=== PATIENT | male | born 1965 | race African-American/Black ===

== ENCOUNTER → 2019-04-09 | Outpatient (CLI) | payer OTHER ==
--- NOTE | 2019-04-09 09:29 | REP ---
Clinical: Trauma/injury with pain. Technique: AP, lateral, bilateral oblique views. Findings: No acute fracture or dislocation. Skeletal structures and joint spaces are intact and normal. Surrounding soft tissues including posterior soft tissues on lateral radiograph appear normal. Ankle mortise appears stable. No subcutaneous emphysema or radiodense foreign body. Incidental small calcaneal heal spur noted. Impression: Essentially normal left ankle radiograph series. Electronically Signed by Romeo Rust MD 04/09/2019 09:20 A
--- NOTE | 2019-04-09 09:30 | REP ---
Clinical: Pain. Prior injury. Technique: AP, lateral, bilateral oblique views of the left foot. Findings: No acute or healed fracture/injury is appreciated. Osseous structures, joint spaces, and surrounding soft tissues appear relatively normal. Incidental small calcaneal heal spur identified. Surrounding soft tissues are unremarkable. Impression: Essentially normal left foot radiographs. Electronically Signed by Romeo Rust MD 04/09/2019 09:21 A
== END ==
LOC: M RAD 08:37
PROVIDERS: ATTEND Surgery
DX: S99.912A Unspecified injury of left ankle, initial encounter (principal); X58.XXXA Exposure to other specified factors, initial encounter; Y92.9 Unspecified place or not applicable

== ENCOUNTER → 2019-10-30 | Outpatient (CLI) | payer OTHER ==
--- NOTE | 2019-10-31 01:21 | REP ---
Clinical: Left shoulder pain. Technique: Internal rotation, external rotation, and Y view of the left shoulder. Findings: Mild cortical irregularity and subtle spurring at the acromioclavicular joint. Subacromial space is within normal limits. The glenohumeral joint is intact and normal. There is no evidence for acute fracture dislocation. No periarticular calcifications or loose bodies. Impression: Mild degenerative changes at the acromioclavicular joint. Electronically Signed by Romeo Rust MD 10/31/2019 01:13 A
--- NOTE | 2019-10-31 01:24 | REP ---
Clinical: Right ankle pain. Technique: AP, lateral, bilateral oblique views of the right ankle. Findings: Generalized age-related changes are appreciated. No acute fracture dislocation. No obvious healed injury. Ankle mortise intact. Surrounding soft tissues are grossly unremarkable. Impression: Essentially age-appropriate right ankle radiographs. Electronically Signed by Romeo Rust MD 10/31/2019 01:16 A
== END ==
LOC: M RAD 08:40
PROVIDERS: ATTEND Surgery
DX: M25.512 Pain in left shoulder (principal); M25.571 Pain in right ankle and joints of right foot

== ENCOUNTER → 2020-06-12 | Outpatient (REF) | payer OTHER | LOC: M LAB REF 11:30 | PROVIDERS: ATTEND Surgery | DX: Z01.818 Encounter for other preprocedural examination (principal); Z20.828 Contact with and (suspected) exposure to other viral communicable diseases; D57.3 Sickle-cell trait | CPT/HCPCS: 85660; U0002 ==

== ENCOUNTER → 2020-07-21 | Outpatient (CLI) | payer OTHER ==
--- NOTE | 2020-07-23 16:17 | REP ---
CLINICAL: Lower back pain. TECHNIQUE: AP lateral and bilateral oblique and coned down views of the lumbosacral spine. FINDINGS: Alignment and lordosis maintained. Vertebral bodies are intact. No fracture/compression injury or subluxation is appreciated. Mild essentially age- related multilevel degenerative changes include subtle increased sclerosis to the endplates with very minimal marginal spurring. Disc spaces appear relatively well maintained. IMPRESSION: Mild age related multilevel degenerative changes. If the patient remains symptomatic consider MRI for further investigation. MTDD
== END ==
LOC: M RAD 08:25
PROVIDERS: ATTEND Surgery
DX: M51.36 Other intervertebral disc degeneration, lumbar region (principal); M25.78 Osteophyte, vertebrae